=== PATIENT | female | born 1945 | race Caucasian/White ===

== ENCOUNTER 2016-05-28 00:52 | Inpatient (IN) | payer MEDICARE ==
[~2016-05-28] VITALS: Ht 154.9 cm; Wt 36.7 kg
[2016-05-28] VITALS (8 sets, daily range): BP systolic 83–122; RESP 16–20; TEMP 98.2–98.8; Ht 154.9 cm; Wt 36.7 kg
[2016-05-28] MEDS ORDERED: CEFTRIAXONE 1 GM VIAL ONE (02:00)
[2016-05-28] MEDS ORDERED: ONDANSETRON 4 MG VIAL ONE (02:00)
[2016-05-28] MEDS ORDERED: SODIUM CHLORIDE 0.9% 1,000 ML ONE (02:01)
[2016-05-28] MEDS ORDERED: FENTANYL 100 MCG/2 ML AMP ONE (02:01)
[2016-05-28] MEDS ORDERED: SODIUM CHLORIDE 0.9% 100 ML IV ONE (02:06)
[2016-05-28] MEDS ORDERED: PHARMACY TO DOSE LEVAQUIN IV SCH (02:15)
[2016-05-28] MEDS ORDERED: SALINE FLUSH 10 ML FLUSH PRN (02:15)
[2016-05-28] MEDS ORDERED: LEVOFLOXACIN 750 MG/150 ML 150 ML IV ONE (04:00)
[2016-05-28] MEDS: SODIUM CHLORIDE 0.9% FLUSH BAG 500 ML IV SCH (04:01)
[2016-05-28] MEDS: PANTOPRAZOLE 40 MG TAB PO SCH (04:13)
[2016-05-28] MEDS: MDI-SPIRIVA 5 DOSES INH SCH (05:48)
[2016-05-28] MEDS: SALINE FLUSH 10 ML FLUSH SCH ×2 (08:00→21:24)
[2016-05-28] MEDS: DUONEB INH SCH ×5 (08:17→22:10)
[2016-05-28] MEDS: ASPIRIN EC 81 MG TAB PO SCH (08:42)
[2016-05-28] MEDS: PAROXETINE HCL 20 MG TAB PO SCH (08:43)
[2016-05-28] MEDS: BISOPROLOL 5 MG TAB PO SCH ×2 (08:43→21:23)
[2016-05-28] MEDS: ALPRAZOLAM 0.25 MG TAB PO SCH ×3 (09:02→21:24)
[2016-05-29] MEDS: DUONEB INH SCH ×6 (02:28→22:45)
[2016-05-29 03:53] VITALS: BP_SYST 109; RESP 18; TEMP 98.5
[2016-05-29] MEDS: PANTOPRAZOLE 40 MG TAB PO SCH (06:26)
[2016-05-29] MEDS: SODIUM CHLORIDE 0.9% FLUSH BAG 500 ML IV SCH (06:27)
[2016-05-29] MEDS: MDI-SPIRIVA 5 DOSES INH SCH (06:32)
[2016-05-29 07:13] VITALS: BP_SYST 104; RESP 18; TEMP 98
[2016-05-29] MEDS: ALPRAZOLAM 0.25 MG TAB PO SCH ×3 (08:41→20:32)
[2016-05-29] MEDS: ASPIRIN EC 81 MG TAB PO SCH (08:41)
[2016-05-29] MEDS: BISOPROLOL 5 MG TAB PO SCH ×2 (08:41→20:33)
[2016-05-29] MEDS: PAROXETINE HCL 20 MG TAB PO SCH (08:41)
[2016-05-29] MEDS: SALINE FLUSH 10 ML FLUSH SCH ×2 (08:42→20:32)
[2016-05-29 10:35] VITALS: BP_SYST 113; RESP 18; TEMP 98
[2016-05-29] MEDS: LEVOFLOXACIN 500 MG/100 ML 100 ML IV SCH (11:13)
[2016-05-29] MEDS ORDERED: MAG HYDROX 30 ML UDC PO ONE (11:20)
[2016-05-29] MEDS: ACETAMINOPHEN 325 MG TAB PO PRN ×2 (11:52→18:55)
[2016-05-29] MEDS: METOPROLOL TART 25 MG TAB PO SCH ×2 (12:29→20:33)
[2016-05-29 15:24] VITALS: BP_SYST 101; RESP 18; TEMP 98.4
[2016-05-29 19:16] VITALS: BP_SYST 125; RESP 18; TEMP 99.1
[2016-05-29] MEDS ORDERED: LEVOFLOXACIN 750 MG/150 ML 150 ML IV SCH (21:00)
[2016-05-29 22:57] VITALS: BP_SYST 123; RESP 18; TEMP 98.3
[2016-05-30] VITALS (7 sets, daily range): BP systolic 82–136; RESP 18; TEMP 98–99.1
[2016-05-30] MEDS: DUONEB INH SCH ×6 (02:16→22:36)
[2016-05-30] MEDS: SODIUM CHLORIDE 0.9% FLUSH BAG 500 ML IV SCH (06:19)
[2016-05-30] MEDS: PANTOPRAZOLE 40 MG TAB PO SCH (06:19)
[2016-05-30] MEDS ORDERED: FLEET ENEMA 132 ML BTL RECTAL ONE (06:35)
[2016-05-30] MEDS: MDI-SPIRIVA 5 DOSES INH SCH (06:38)
[2016-05-30] MEDS: ASPIRIN EC 81 MG TAB PO SCH (08:56)
[2016-05-30] MEDS: SALINE FLUSH 10 ML FLUSH SCH ×2 (08:56→21:00)
[2016-05-30] MEDS: LEVOFLOXACIN 500 MG/100 ML 100 ML IV SCH (08:56)
[2016-05-30] MEDS: ALPRAZOLAM 0.25 MG TAB PO SCH ×3 (08:56→21:01)
[2016-05-30] MEDS: METOPROLOL TART 25 MG TAB PO SCH ×2 (08:57→21:00)
[2016-05-30] MEDS: BISOPROLOL 5 MG TAB PO SCH ×2 (08:57→21:00)
[2016-05-30] MEDS: PAROXETINE HCL 20 MG TAB PO SCH (08:57)
[2016-05-31] MEDS: DUONEB INH SCH ×6 (02:33→22:27)
[2016-05-31 03:44] VITALS: BP_SYST 109; RESP 18; TEMP 97.7
[2016-05-31] MEDS: SODIUM CHLORIDE 0.9% FLUSH BAG 500 ML IV SCH (05:47)
[2016-05-31] MEDS: PANTOPRAZOLE 40 MG TAB PO SCH (05:47)
[2016-05-31] MEDS: MDI-SPIRIVA 5 DOSES INH SCH (06:36)
[2016-05-31 07:21] VITALS: BP_SYST 118; RESP 16; TEMP 98.1
[2016-05-31] MEDS: METOPROLOL TART 25 MG TAB PO SCH ×2 (09:00→20:28)
[2016-05-31] MEDS: SALINE FLUSH 10 ML FLUSH SCH ×2 (09:26→20:25)
[2016-05-31] MEDS: LEVOFLOXACIN 250 MG/50 ML 50 ML IV SCH (09:27)
[2016-05-31] MEDS: BISOPROLOL 5 MG TAB PO SCH ×2 (09:27→20:24)
[2016-05-31] MEDS: ASPIRIN EC 81 MG TAB PO SCH (09:27)
[2016-05-31] MEDS: PAROXETINE HCL 20 MG TAB PO SCH (09:27)
[2016-05-31] MEDS: ALPRAZOLAM 0.25 MG TAB PO SCH ×3 (09:36→20:25)
[2016-05-31 11:25] VITALS: BP_SYST 119; RESP 18; TEMP 98.4
[2016-05-31 15:18] VITALS: BP_SYST 136; RESP 18; TEMP 97.3
[2016-05-31 19:32] VITALS: BP_SYST 118; RESP 18; TEMP 98.3
[2016-05-31] MEDS: METHYLPRED SOD SUCC 40 MG VIAL IV SCH ×2 (21:38→23:52)
[2016-05-31 23:38] VITALS: BP_SYST 118; RESP 18; TEMP 98.3
[2016-06-01] MEDS: DUONEB INH SCH ×3 (02:36→10:42)
[2016-06-01 02:43] VITALS: BP_SYST 130; RESP 18; TEMP 98
[2016-06-01] MEDS: METHYLPRED SOD SUCC 40 MG VIAL IV SCH ×2 (06:30→12:00)
[2016-06-01] MEDS: PANTOPRAZOLE 40 MG TAB PO SCH (06:30)
[2016-06-01] MEDS: SODIUM CHLORIDE 0.9% FLUSH BAG 500 ML IV SCH (06:34)
[2016-06-01] MEDS ORDERED: NEB-BROVANA 15 MCG/2 ML INH SCH (07:00)
[2016-06-01 07:12] VITALS: BP_SYST 142; RESP 24; TEMP 98
[2016-06-01] MEDS: MDI-SPIRIVA 5 DOSES INH SCH (07:23)
[2016-06-01] MEDS: METOPROLOL TART 25 MG TAB PO SCH (09:00)
[2016-06-01] MEDS: SALINE FLUSH 10 ML FLUSH SCH (09:23)
[2016-06-01] MEDS: PAROXETINE HCL 20 MG TAB PO SCH (09:23)
[2016-06-01] MEDS: ASPIRIN EC 81 MG TAB PO SCH (09:23)
[2016-06-01] MEDS: ALPRAZOLAM 0.25 MG TAB PO SCH (09:23)
[2016-06-01] MEDS: BISOPROLOL 5 MG TAB PO SCH (09:23)
[2016-06-01] MEDS: LEVOFLOXACIN 250 MG/50 ML 50 ML IV SCH (09:23)
[2016-06-01 11:01] VITALS: BP_SYST 135; RESP 18; TEMP 97.3
[2016-06-01 12:21] VITALS: BP_SYST 135; RESP 18; TEMP 97.3
== END 2016-06-01 12:49 | disposition home or self-care (01) | DRG 190 ==
LOC: ENRESERVTM → ENRESERV → ENRESERVDT → ER 00:52 → ENPENDDIS 02:11 → EMR 02:11 → 4NT 03:34
PROVIDERS: ADMIT Internal Medicine; ATTEND Internal Medicine
CPT/HCPCS: 36415; 71010; 71020; 80053; 81001; 82553; 83605; 84484; 85025; 85379; 87040; 87088; 87278; 87299; 93005; 94640; 94799; 96361; 96365; 96375; 99222; 99232; 99239

== ENCOUNTER 2016-06-16 08:43 | Emergency (ER) | payer MEDICARE | END 2016-06-16 13:33 | disposition home or self-care (01) | LOC: ER 08:43 | DX: R07.2 Precordial pain (principal) | CPT/HCPCS: 36415; 71010; 80053; 82550; 83735; 84484; 85025; 85610; 85730; 93005 ==